=== PATIENT | male | born 1975 | race African-American/Black ===

== ENCOUNTER 2017-10-26 06:15 | Emergency (ER) | payer BC, OTHER ==
[~2017-10-26] VITALS: Ht 167.6 cm; Wt 79.4 kg
[~2017-10-26 06:15] MED LIST: AMOXICILLIN 25250 M2 OR; BACTRIM DS TAB1 EACH PO; DARVOCET-N 1001 EACH PO; DIFLUCAN150 MG PO; DOXYCYCLINE 10100 MG; DOXYCYCLINE 10100 MG PO; FLOMAX0.4 MG PO; HYCET 7.5 MG-3473 ML PO; IBUPROFEN 800800 MG PO; NAPROSYN500 MG PO; NORCO 5-325 TA1 EACH PO; PENICILLIN125 MG/51; PROAIR HFA8.5 GM IH; PYRIDIUM200 MG PO; ULTRAM 50MG TAB50 MG PO; VALTREX 500 MG500 MG PO; VESICARE10 M1; VISINE15 ML; ZOFRAN ODT4 MG PO; ZPAK PO
[2017-10-26] MEDS ORDERED: SINGULAIR 10 MG10 M1 PO (06:27)
[2017-10-26 06:46] LABS: URINE BILIRUBIN NEGATIVE (Negative); URINE BLOOD NEGATIVE (Negative); URINE CLARITY CLEAR; URINE COLOR YELLOW; URINE GLUCOSE-RANDOM* NEGATIVE (Negative); URINE KETONES NEGATIVE (Negative); URINE LEUKOCYTES-REFLEX NEGATIVE (Negative); URINE NITRITE-REFLEX NEGATIVE (Negative); URINE PROTEIN (DIPSTICK) NEGATIVE (Negative); URINE UROBILINOGEN 0.2 E.U./dl (0.2-1.0)
[2017-10-26 07:08] LABS: HEMATOCRIT 40.3 % (42.0-52.0); HEMOGLOBIN 13.6 gm/dL (14.0-18.0); MCH 30.8 pg (26.0-34.0); MCHC 33.8 g/dL (28.0-37.0); PLATELET COUNT 220 thou/uL (150-400); RBC 4.42 mil/uL (4.50-6.00); RDW 15.5 % (10.5-14.5); WBC 5.4 thou/uL (4.0-11.0)
[2017-10-26 07:18] LABS: CALCIUM 9.2 mg/dL (8.5-10.1); CREATININE 1.4 mg/dL (0.7-1.3); POTASSIUM 3.8 mmol/L (3.5-5.1)
[2017-10-26 07:23] LABS: ALBUMIN 3.9 g/dL (3.4-5.0); TOTAL BILIRUBIN 0.2 mg/dL (<0.1-1.0)
[2017-10-26 07:45] VITALS: BP 115/70
[2017-10-26 08:47] LABS: PLATELET ESTIMATE NORMAL
== END 2017-10-26 07:45 | disposition home or self-care (01) ==
LOC: ER 06:15
PROVIDERS: Emergency Medicine
DX: N34.2 Other urethritis (principal); N45.1 Epididymitis; Z87.442 Personal history of urinary calculi; Z88.1 Allergy status to other antibiotic agents; Z88.2 Allergy status to sulfonamides; Z87.891 Personal history of nicotine dependence

== ENCOUNTER 2018-05-29 02:18 | Emergency (ER) | payer BC, OTHER ==
[~2018-05-29] VITALS: Ht 167.6 cm; Wt 77.1 kg
[~2018-05-29 02:18] MED LIST changes: +SINGULAIR 10 MG10 M1 PO
[2018-05-29 05:15] LABS: ABSOLUTE NEUTROPHILS 3.7 thou/uL (1.4-8.2); BASOPHILS 0.6 % (0.0-2.0); HEMATOCRIT 42.4 % (42.0-52.0); HEMOGLOBIN 14.3 gm/dL (14.0-18.0); LYMPHOCYTES 38.9 % (24.0-44.0); MCH 30.9 pg (26.0-34.0); MCHC 33.8 g/dL (28.0-37.0); MCV 91.4 fL (80.0-100.0); MONOCYTES 8.7 % (1.0-8.0); PLATELET COUNT 245 thou/uL (150-400); POLYS 46.8 % (36.0-66.0); RBC 4.64 mil/uL (4.50-6.00); RDW 15.2 % (10.5-14.5); WBC 7.9 thou/uL (4.0-11.0)
[2018-05-29 05:21] LABS: CALCIUM 9.2 mg/dL (8.5-10.1); CREATININE 1.5 mg/dL (0.7-1.3); POTASSIUM 4.1 mmol/L (3.5-5.1)
[2018-05-29 05:27] LABS: ALBUMIN 3.9 g/dL (3.4-5.0); TOTAL BILIRUBIN 0.3 mg/dL (<0.1-1.0); TOTAL PROTEIN 7.5 g/dL (6.4-8.2)
[2018-05-29 05:30] LABS: URINE BILIRUBIN NEGATIVE (Negative); URINE BLOOD NEGATIVE (Negative); URINE CLARITY TURBID; URINE COLOR YELLOW; URINE GLUCOSE-RANDOM* NEGATIVE (Negative); URINE KETONES NEGATIVE (Negative); URINE LEUKOCYTES NEGATIVE (Negative); URINE NITRITE NEGATIVE (Negative); URINE PROTEIN (DIPSTICK) NEGATIVE (Negative); URINE SPECIFIC GRAVITY >= 1.030 (1.005-1.035); URINE UROBILINOGEN 0.2 E.U./dl (0.2-1.0)
[2018-05-29] MEDS ORDERED: PHENAZOPYRIDIN100 M1 PO (05:55)
[2018-05-29 06:42] VITALS: BP 104/66
== END 2018-05-29 06:43 | disposition home or self-care (01) ==
LOC: ER 02:18
PROVIDERS: Emergency Medicine
DX: R10.9 Unspecified abdominal pain (principal); R30.0 Dysuria; Z87.891 Personal history of nicotine dependence; Z88.1 Allergy status to other antibiotic agents; Z88.2 Allergy status to sulfonamides; Z88.8 Allergy status to other drugs, medicaments and biological substances; Z87.442 Personal history of urinary calculi

== ENCOUNTER 2019-02-09 17:47 | Emergency (ER) | payer BC, OTHER ==
[~2019-02-09] VITALS: Ht 167.6 cm; Wt 75.8 kg
[~2019-02-09 17:47] MED LIST changes: +PHENAZOPYRIDIN100 M1 PO
[2019-02-09 18:01] VITALS: BP 126/88
[2019-02-09 18:31] LABS: URINE BILIRUBIN NEGATIVE (Negative); URINE BLOOD NEGATIVE (Negative); URINE CLARITY CLEAR; URINE COLOR YELLOW; URINE GLUCOSE-RANDOM* NEGATIVE (Negative); URINE KETONES NEGATIVE (Negative); URINE LEUKOCYTES-REFLEX NEGATIVE (Negative); URINE NITRITE-REFLEX NEGATIVE (Negative); URINE PROTEIN (DIPSTICK) NEGATIVE (Negative); URINE SPECIFIC GRAVITY 1.025 (1.005-1.035); URINE UROBILINOGEN 0.2 E.U./dl (0.2-1.0)
[2019-02-09] MEDS ORDERED: VIBRAMYCIN 100100 MG PO (18:48)
== END 2019-02-09 19:01 | disposition home or self-care (01) ==
LOC: ER 17:47
PROVIDERS: Emergency Medicine
DX: R30.0 Dysuria (principal); R35.0 Frequency of micturition; Z87.891 Personal history of nicotine dependence; Z88.1 Allergy status to other antibiotic agents; Z88.2 Allergy status to sulfonamides; Z87.442 Personal history of urinary calculi

== ENCOUNTER 2019-06-13 05:03 | Emergency (ER) | payer BC, OTHER ==
[~2019-06-13] VITALS: Ht 167.6 cm; Wt 78.9 kg
[~2019-06-13 05:03] MED LIST changes: +VIBRAMYCIN 100100 MG PO
[2019-06-13] MEDS ORDERED: FLOMAX0.4 MG PO (05:11)
[2019-06-13 05:37] LABS: URINE BILIRUBIN NEGATIVE (Negative); URINE BLOOD NEGATIVE (Negative); URINE CLARITY CLEAR; URINE COLOR YELLOW; URINE GLUCOSE-RANDOM* NEGATIVE (Negative); URINE KETONES NEGATIVE (Negative); URINE LEUKOCYTES-REFLEX NEGATIVE (Negative); URINE NITRITE-REFLEX NEGATIVE (Negative); URINE PROTEIN (DIPSTICK) NEGATIVE (Negative); URINE UROBILINOGEN 0.2 E.U./dl (0.2-1.0)
[2019-06-13 06:35] LABS: CREATININE 1.3 mg/dL (0.7-1.3); POTASSIUM 4.2 mmol/L (3.5-5.1)
[2019-06-13 06:42] LABS: TOTAL BILIRUBIN 0.2 mg/dL (<0.1-1.0); TOTAL PROTEIN 7.1 g/dL (6.4-8.2)
[2019-06-13 06:43] LABS: ABSOLUTE NEUTROPHILS 2.1 thou/uL (1.4-8.2); BASOPHILS 0.7 % (0.0-2.0); EOSINOPHILS 3.4 % (0.0-3.0); HEMATOCRIT 43.6 % (42.0-52.0); HEMOGLOBIN 14.1 gm/dL (14.0-18.0); LYMPHOCYTES 45.1 % (24.0-44.0); MCH 30.7 pg (26.0-34.0); MCHC 32.4 g/dL (28.0-37.0); MCV 94.8 fL (80.0-100.0); POLYS 38.8 % (36.0-66.0); RDW 14.9 % (10.5-14.5)
[2019-06-13] MEDS ORDERED: NAPROSYN500 MG PO (07:32)
[2019-06-13 07:57] VITALS: BP 114/69
[2019-06-13 08:29] LABS: PLATELET COUNT 124 thou/uL (150-400)
== END 2019-06-13 08:00 | disposition still patient (30) ==
LOC: ER 05:03
PROVIDERS: Emergency Medicine
DX: I86.1 Scrotal varices (principal); N50.89 Other specified disorders of the male genital organs; R30.0 Dysuria; F17.210 Nicotine dependence, cigarettes, uncomplicated; Z87.442 Personal history of urinary calculi; Z88.1 Allergy status to other antibiotic agents

== ENCOUNTER 2019-12-01 05:05 | Emergency (ER) | payer BC ==
[~2019-12-01] VITALS: Ht 167.6 cm; Wt 74.4 kg
[2019-12-01 05:08] VITALS: BP 149/94
[2019-12-01 05:32] LABS: URINE BILIRUBIN NEGATIVE (Negative); URINE BLOOD NEGATIVE (Negative); URINE CLARITY CLEAR; URINE COLOR YELLOW; URINE GLUCOSE-RANDOM* NEGATIVE (Negative); URINE KETONES NEGATIVE (Negative); URINE LEUKOCYTES-REFLEX NEGATIVE (Negative); URINE NITRITE-REFLEX NEGATIVE (Negative); URINE PROTEIN (DIPSTICK) NEGATIVE (Negative); URINE UROBILINOGEN 0.2 E.U./dl (0.2-1.0)
[2019-12-01] MEDS ORDERED: VIBRAMYCIN 100100 MG PO (05:49)
== END 2019-12-01 06:07 | disposition home or self-care (01) ==
LOC: ER 05:05
PROVIDERS: Emergency Medicine
DX: R35.0 Frequency of micturition (principal); R30.9 Painful micturition, unspecified; R10.9 Unspecified abdominal pain; N50.89 Other specified disorders of the male genital organs; Z20.2 Contact with and (suspected) exposure to infections with a predominantly sexual mode of transmission; F17.210 Nicotine dependence, cigarettes, uncomplicated; Z87.442 Personal history of urinary calculi; Z79.899 Other long term (current) drug therapy; Z88.1 Allergy status to other antibiotic agents; Z88.2 Allergy status to sulfonamides

== ENCOUNTER 2020-07-19 06:38 | Emergency (ER) | payer BC, OTHER ==
[~2020-07-19] VITALS: Ht 167.6 cm; Wt 78.0 kg
[2020-07-19 06:43] VITALS: BP 130/85
[2020-07-19 07:02] LABS: URINE BILIRUBIN NEGATIVE (Negative); URINE BLOOD NEGATIVE (Negative); URINE CLARITY CLEAR; URINE COLOR YELLOW; URINE GLUCOSE-RANDOM* NEGATIVE (Negative); URINE KETONES NEGATIVE (Negative); URINE LEUKOCYTES-REFLEX NEGATIVE (Negative); URINE NITRITE-REFLEX NEGATIVE (Negative); URINE PROTEIN (DIPSTICK) NEGATIVE (Negative); URINE UROBILINOGEN 0.2 E.U./dl (0.2-1.0)
== END 2020-07-19 07:48 | disposition home or self-care (01) ==
LOC: ER 06:38
PROVIDERS: Emergency Medicine
DX: Z20.2 Contact with and (suspected) exposure to infections with a predominantly sexual mode of transmission (principal); R30.0 Dysuria; R35.0 Frequency of micturition; N50.89 Other specified disorders of the male genital organs; F17.210 Nicotine dependence, cigarettes, uncomplicated; Z87.442 Personal history of urinary calculi; Z79.2 Long term (current) use of antibiotics; Z79.899 Other long term (current) drug therapy; Z88.1 Allergy status to other antibiotic agents; Z88.2 Allergy status to sulfonamides